=== PATIENT | female | born 1945 | race Caucasian/White ===

== ENCOUNTER 2022-06-10 21:21 | Emergency (ER) | payer OTHER ==
[~2022-06-10] VITALS: Ht 152.4 cm; Wt 46.3 kg
[2022-06-10 22:00] VITALS: BP_SYST 149
[2022-06-10] MEDS ORDERED: ONDANSETRON HCL 4 MG/2 ML VIAL IVP ONE (22:45)
[2022-06-10] MEDS ORDERED: NACL 0.9% 1,000 ML IV ONE (22:45)
[2022-06-10 23:47] LABS: BASOPHILS # (AUTO) 0.2 K/uL (0.0-0.2); BASOPHILS % (AUTO) 1.5 % (0.0-2.0); EOSINOPHILS % (AUTO) 0.4 % (0.0-4.0); LYMPHOCYTES # (AUTO) 0.6 K/uL (1.0-5.5); LYMPHOCYTES % (AUTO) 5.8 % (20.5-51.5); MEAN CORPUSCULAR HEMOGLOBIN 30 pg (27-31); MEAN CORPUSCULAR HGB CONC 34 % (32-36); MEAN CORPUSCULAR VOLUME 88 fL (79.0-98.0); MONOCYTES # (AUTO) 0.6 K/uL (0.0-1.0); MONOCYTES % (AUTO) 5.5 % (1.7-9.3); NEUTROPHILS # (AUTO) 9.3 K/uL (1.8-7.7); NEUTROPHILS % (AUTO) 86.8 % (40.0-70.0); PLATELET COUNT (AUTO) 375 K/uL (130-430); RED BLOOD CELL COUNT(AUTO) 4.67 MIL/uL (4.2-6.2); RED CELL DISTRIBUTION WIDTH 13.4 % (9.0-15.0); WHITE BLOOD COUNT (AUTO) 10.8 K/uL (4.8-10.8)
[2022-06-10 23:52] LABS: ANION GAP 0 (5-15); CALCIUM 9.7 mg/dL (8.4-11.0); CHLORIDE 103 mmol/L (98-107); CREATININE 0.58 mg/dL (0.55-1.30); GLUCOSE 112 mg/dL (70-99); UREA NITROGEN, BLOOD 9 mg/dL (8-21)
[2022-06-10 23:58] LABS: ALANINE AMINOTRANSFERASE 13 U/L (12-78); ALBUMIN 3.2 g/dL (3.4-4.8); ASPARTATE AMINOTRANSFERASE 17 U/L (10-37); LIPASE 138 U/L (73-393); TOTAL BILIRUBIN 0.5 mg/dL (0.0-1.0)
[2022-06-11] MEDS ORDERED: ONDA8TAB60 PO (00:28)
[2022-06-11 00:35] VITALS: BP_SYST 139
== END 2022-06-10 21:58 | disposition home or self-care (01) ==
LOC: SED 21:21
DX: E86.0 Dehydration (principal); R11.2 Nausea with vomiting, unspecified; R42 Dizziness and giddiness; R10.13 Epigastric pain; Z79.899 Other long term (current) drug therapy
CPT/HCPCS: 99283; 96374; 96361; 80053; 83690; 85025; 36415; J2405; J7030

== ENCOUNTER 2022-06-29 11:38 | Emergency (ER) | payer OTHER ==
[~2022-06-29] VITALS: Ht 152.4 cm; Wt 41.7 kg
[~2022-06-29 11:38] MED LIST: ONDA8TAB60 PO
[2022-06-29 11:47] VITALS: BP_SYST 166
--- NOTE | 2022-06-29 11:47 | NUR ---
Patient to ER bed 03 to gown for evaluation. Side rails up. Report given to JUAN DIEGO Madden.
--- NOTE | 2022-06-29 12:00 | NUR ---
PATIENT FROM HOME AAOX4 C/O ABDOMINAL AND H/A S/P FALL WITH BRUISE TO RIGHT FOREHEAD AWAITING FOR EDP FOR INITIAL ASSESSMENT.
--- NOTE | 2022-06-29 12:10 | NUR ---
PATIENT SPEECH AND MENTAL STATUS NOT COHERENT, WILL CONTINUE TO MONITOR.
[2022-06-29] MEDS ORDERED: ONDANSETRON HCL 4 MG/2 ML VIAL IVP ONE (13:00)
[2022-06-29] MEDS ORDERED: NACL 0.9% 1,000 ML IV ONE (13:00)
[2022-06-29 13:10] LABS: BASOPHILS % (AUTO) 0.2 % (0.0-2.0); HEMATOCRIT 38.7 % (36-48); HEMOGLOBIN 13.3 g/dL (12.0-16.0); LYMPHOCYTES # (AUTO) 0.7 K/uL (1.0-5.5); LYMPHOCYTES % (AUTO) 6.2 % (20.5-51.5); MEAN CORPUSCULAR HEMOGLOBIN 29 pg (27-31); MEAN CORPUSCULAR HGB CONC 34 % (32-36); MEAN CORPUSCULAR VOLUME 86 fL (79.0-98.0); MONOCYTES # (AUTO) 0.7 K/uL (0.0-1.0); MONOCYTES % (AUTO) 5.7 % (1.7-9.3); NEUTROPHILS # (AUTO) 10.1 K/uL (1.8-7.7); NEUTROPHILS % (AUTO) 87.9 % (40.0-70.0); PLATELET COUNT (AUTO) 395 K/uL (130-430); RED CELL DISTRIBUTION WIDTH 13.9 % (9.0-15.0); WHITE BLOOD COUNT (AUTO) 11.5 K/uL (4.8-10.8)
--- NOTE | 2022-06-29 13:10 | NUR ---
REMAINS AT BEDSIDE
[2022-06-29 13:32] LABS: ANION GAP 7 (5-15); CALCIUM 10.2 mg/dL (8.4-11.0); CHLORIDE 98 mmol/L (98-107); CREATININE 0.63 mg/dL (0.55-1.30); GLUCOSE 130 mg/dL (70-99); UREA NITROGEN, BLOOD 7 mg/dL (8-21)
[2022-06-29 13:43] LABS: ALANINE AMINOTRANSFERASE 11 U/L (12-78); ALBUMIN 3.6 g/dL (3.4-4.8); ASPARTATE AMINOTRANSFERASE 22 U/L (10-37); TOTAL BILIRUBIN 0.6 mg/dL (0.0-1.0)
--- NOTE | 2022-06-29 14:10 | NUR ---
COVID SAMPLE COLECTED AND SENT TO LAB.
[2022-06-29] MEDS ORDERED: fentaNYL CITRATE/PF 100 MCG/2 ML AMP IVP ONE ×2 (14:15→15:30)
--- NOTE | 2022-06-29 15:10 | NUR ---
TRANSFER INFO [facility] ED ACCEPTING: DR. HURTADO REPORT: [phone] [id number] PT WILL BE SENT [facility] [address] [place] WILL SET UP AMBULANCE AND WILL CALL BACK WITH ETA. SPOKE TO IRIS.
--- NOTE | 2022-06-29 15:33 | NUR ---
AT BEDSIDE WAS TRYING TO HELP PATIENT OUT OF BED FOR VOMITING AND PATIENT FELL PER WITH A SMALL LACERATION TO LEFT EYEBROW, EDP MADE AWARE, EDP AT BEDSIDE FOR REASSESSMENT WILL CONTINUE TO [facility] ITOR, INSTRUCTED TO STAY AT BEDSIDE, CONTINUE TO KEEP PATIENT NPO, AND KEEP PATIENT IN BED. AWAITING FOR TRANSFER.
--- NOTE | 2022-06-29 15:50 | NUR ---
PATIENT REMAINS IN BED NO CHANGED WILL CONTINUE TO MONITOR.
--- NOTE | 2022-06-29 16:05 | NUR ---
PATIENT REMOVED HER IV, SHE WANTS TO GO HOME, AT BEDSIDE.
--- NOTE | 2022-06-29 16:24 | NUR ---
Patient to be transferred to [facility]. Is being transferred due to higher level of care. Receiving facility has accepting physician and available space. ER physician has signed transfer form. Patient or responsible green party has agreed to transfer and signed form. Patient belongings inventoried and will be sent with patient. Copy of nursing notes, lab reports, EKG, Physicians Orders and X-rays to be sent with patient. Report called to MELIDA ADAMSON at receiving facility. Receiving physician is DR HURTADO.[facility] ambulance service has been called for transfer. ETA is 15 MINUTES TO [facility].
[2022-06-29 16:26] VITALS: BP_SYST 154
== END 2022-06-29 16:24 | disposition short-term general hospital (02) ==
LOC: SED 11:38
DX: I62.9 Nontraumatic intracranial hemorrhage, unspecified (principal); R51.9 Headache, unspecified; R42 Dizziness and giddiness; R11.0 Nausea; I10 Essential (primary) hypertension; Z88.5 Allergy status to narcotic agent; Z88.6 Allergy status to analgesic agent; Z91.048 Other nonmedicinal substance allergy status; Z79.899 Other long term (current) drug therapy; Z20.822 Contact with and (suspected) exposure to COVID-19
CPT/HCPCS: 99291; 96374; 70450; 96361; 96375; 87426; 80053; 85025; 36415; 76376; 96376; J2405; J3010; J7030